=== PATIENT | female | born 1955 | race Caucasian/White ===

== ENCOUNTER 2016-04-02 09:00 | Outpatient (CLI) | payer MEDICAID | END 2016-04-02 09:01 | disposition home or self-care (01) | DX: I10 Essential (primary) hypertension (principal); E11.9 Type 2 diabetes mellitus without complications ==

== ENCOUNTER 2022-05-22 16:15 | Outpatient (CLI) | payer MEDICAID ==
[2022-05-22 20:35] LABS: BASOPHILS # (AUTO) 0.1 10^3/uL (0.0-0.1); BASOPHILS % (AUTO) 0.9 %; EOSINOPHILS # (AUTO) 0.3 10^3/uL (0.0-0.7); EOSINOPHILS % (AUTO) 3.4 %; HGB - HEMOGLOBIN 12.9 g/dL (12.0-16.0); LYMPHOCYTES # (AUTO) 1.6 10^3/uL (1.5-3.5); LYMPHOCYTES % (AUTO) 20.6 %; MEAN CORPUSCULAR HEMOGLOBIN 25.5 pg (27.0-31.0); MEAN PLATELET VOLUME 11.8 fL (7.9-10.8); MONOCYTES # (AUTO) 0.6 10^3/uL (0.0-1.0); MONOCYTES % (AUTO) 7.8 %; NEUTROPHILS # (AUTO) 5.3 10^3/uL (1.5-6.6); NEUTROPHILS % (AUTO) 66.8 %; PLT - PLATELET COUNT 270 10^3/uL (130-450); RED BLOOD COUNT 5.06 10^6/uL (4.20-5.40); RED CELL DISTRIBUTION WIDTH 15.9 % (12.0-15.0)
[2022-05-22 20:45] LABS: ESTIMATED AVERAGE GLUCOSE 229 mg/dL (70-100); HEMOGLOBIN A1c% 9.6 % (4.27-6.07)
[2022-05-22 20:56] LABS: ALBUMIN 3.7 g/dL (3.2-5.5); ALBUMIN/GLOBULIN RATIO 1.2 (1.0-2.2); ALKALINE PHOSPHATASE 125 IU/L (42-121); ALT ALANINE AMINOTRANSFERASE 27 IU/L (10-60); AST ASPARTATE AMINOTRANSFERASE 22 IU/L (10-42); BILIRUBIN,TOTAL 0.2 mg/dL (0.2-1.0); BUN - BLOOD UREA NITROGEN 28 mg/dL (6-20); CALCIUM 9.2 mg/dL (8.5-10.3); CARBON DIOXIDE - CO2 27 mmol/L (21-32); CHLORIDE 104 mmol/L (101-111); CHOL/HDL RATIO 3.5 (<4.4); CHOLESTEROL 205 mg/dL; CREATININE 0.7 mg/dL (0.4-1.0); GFR - MDRD 84 (>89); GLUCOSE 207 mg/dL (70-100); HDL CHOLESTEROL 59 mg/dL; LDL CHOLESTEROL,CALCULATED 116 mg/dL; POTASSIUM 4.3 mmol/L (3.5-5.0); SODIUM 140 mmol/L (135-145); TOTAL PROTEIN 6.9 g/dL (6.7-8.2); TRIGLYCERIDES 149 mg/dL; VLDL CHOLESTEROL 30 mg/dL
[2022-05-22 21:03] LABS: PARTIAL THROMBOPLASTIN TIME 34.2 secs (24.9-33.3)
[2022-05-22 21:10] LABS: INR 1.2 (0.8-1.2); PT - PROTHROMBIN TIME 13.5 secs (9.9-12.6)
== END 2022-05-22 16:30 | disposition home or self-care (01) ==
LOC: LAB.N 16:15
PROVIDERS: ATTEND Nurse Practitioner
DX: E78.5 Hyperlipidemia, unspecified (principal)
CPT/HCPCS: 36415; 80053; 80061; 83036; 83721; 85025; 85610; 85730

== ENCOUNTER 2022-08-11 08:46 | Outpatient (CLI) | payer MEDICAID ==
--- NOTE | 2022-08-11 10:12 | CT Report ---
PROCEDURE: Low Dose Lung Cancer Screen INDICATIONS: TOBACCO DEPENDENCE TECHNIQUE: Noncontrast low-dose axial images were acquired from the pulmonary apices to the posterior costophren ic angles. Multiplanar MIP reformats were then reconstructed. For radiation dose reduction, the follo wing was used: automated exposure control, adjustment of mA and/or kV according to patient size. COMPARISON: None. FINDINGS: Image quality: Excellent. Prior cancer history: No Lungs and pleura: No pleural effusions. No pneumothorax. 4 mm medial pleural based left upper lobe p ulmonary nodule, abutting the mediastinum, image 103/4. 8mm groundglass opacity, right upper lobe, im age 56/4. Mild left basilar atelectasis versus scarring. Mediastinum: Heart size is normal. Trace pericardial effusion. Moderate coronary artery calcification s No mediastinal adenopathy by size criteria. No large vessel abnormality. Chest wall and lower neck: Thyroid is unremarkable. No axillary or supraclavicular adenopathy by size . Bones: No aggressive osseous abnormality. Upper Abdomen: Unremarkable. IMPRESSION: 8 mm groundglass opacity, right upper lobe, 4 mm pleural based left upper lobe pulmonary nodule. Lung RAD: 3 - Probably Benign. Recommendation: Continue screening in 6 Months with LDCT Non-Lung Significant Findings: Coronary Arterial Calcification - Moderate or Severe. Reviewed by: Tan Guerrero MD on 08/11/2022 10:11 AM PDT Approved by: Tan Guerrero MD on 08/11/2022 10:11 AM PDT Station ID: [id number]
== END 2022-08-11 08:47 | disposition home or self-care (01) ==
LOC: DI 08:46
PROVIDERS: ATTEND Physician Assistant
DX: Z12.2 Encounter for screening for malignant neoplasm of respiratory organs (principal); R91.1 Solitary pulmonary nodule; R91.8 Other nonspecific abnormal finding of lung field; Z72.0 Tobacco use

== ENCOUNTER 2022-09-17 08:02 | Outpatient (CLI) | payer MEDICAID ==
[2022-09-17 12:01] LABS: CALCIUM 9.1 mg/dL (8.5-10.3); CREATININE 0.9 mg/dL (0.4-1.0); POTASSIUM 4.2 mmol/L (3.5-5.0)
[2022-09-17 12:23] LABS: ESTIMATED AVERAGE GLUCOSE 263 mg/dL (70-100); HEMOGLOBIN A1c% 10.8 % (4.27-6.07)
[2022-09-17 18:39] LABS: CREATININE,URINE 171.9 mg/dL; MICROALBUM/CREATININE RATIO,UR 258.3 ug/mg (<30.0); MICROALBUMIN,URINE 44.4 mg/dL (0-300.0)
[2022-09-18 05:12] LABS: HCV AB Non Reactive (Non Reactive)
== END 2022-09-17 08:03 | disposition home or self-care (01) ==
LOC: LAB.N 08:02
PROVIDERS: ATTEND Physician Assistant
DX: Z01.84 Encounter for antibody response examination (principal); E11.42 Type 2 diabetes mellitus with diabetic polyneuropathy
CPT/HCPCS: 36415; 80048; 82043; 82570; 83036; 86803

== ENCOUNTER 2022-09-30 15:05 | Outpatient (CLI) | payer MEDICAID | END 2022-09-30 15:06 | disposition home or self-care (01) | LOC: MAC.MOP 15:05 | PROVIDERS: ATTEND Physician Assistant | DX: R94.31 Abnormal electrocardiogram [ECG] [EKG] (principal); Z86.79 Personal history of other diseases of the circulatory system | CPT/HCPCS: 93246 ==

== ENCOUNTER 2022-12-17 10:42 | Outpatient (CLI) | payer MEDICARE ==
[2022-12-17 17:58] LABS: POTASSIUM 4.2 mmol/L (3.5-4.5)
[2022-12-17 18:29] LABS: ESTIMATED AVERAGE GLUCOSE 200 mg/dL (70-100); HEMOGLOBIN A1c% 8.6 % (4.27-6.07)
== END 2022-12-17 10:43 | disposition home or self-care (01) ==
LOC: LAB.N 10:42
PROVIDERS: ATTEND Physician Assistant
DX: E11.42 Type 2 diabetes mellitus with diabetic polyneuropathy (principal)
CPT/HCPCS: 36415; 80048; 83036

== ENCOUNTER 2022-12-23 08:00 | Outpatient (CLI) | payer MEDICARE ==
[2022-12-23 18:32] LABS: INFLUENZA A- RESP PCR PANEL NOT DETECTED; INFLUENZA B - RESP PCR PANEL NOT DETECTED; RSV- RESP PCR PANEL NOT DETECTED; SARS-CoV-2 -RESP PCR PANEL NOT DETECTED
== END 2022-12-23 23:59 | disposition home or self-care (01) ==
LOC: LAB.WCP 08:00
PROVIDERS: ATTEND Physician Assistant
DX: R05.1 Acute cough (principal); Z20.822 Contact with and (suspected) exposure to COVID-19
CPT/HCPCS: 87637

== ENCOUNTER 2022-12-24 17:04 | Outpatient (CLI) | payer MEDICARE ==
[2022-12-24 20:35] LABS: BILIRUBIN,URINE NEGATIVE (NEGATIVE); GLUCOSE, URINE (UA) 100 mg/dL (NEGATIVE); KETONES,URINE (UA) TRACE mg/dL (NEGATIVE); LEUKOCYTE ESTERASE, URINE TRACE (NEGATIVE); NITRITE,URINE POSITIVE (NEGATIVE); OCCULT BLOOD,URINE LARGE (NEGATIVE); PH,URINE 5.5 PH (5.0-7.5); PROTEIN,URINE >=300 mg/dL (NEGATIVE); UROBILINOGEN,URINE 1 (NORMAL) E.U./dL (NORMAL)
[2022-12-24 20:36] LABS: CLARITY,URINE CLOUDY (CLEAR)
[2022-12-24 20:44] LABS: AMORPHOUS SEDIMENT,UR Marked /LPF; BACTERIA,URINE Few /HPF (None Seen); RBC,URINE TNTC /HPF (0-5); SQUAMOUS EPITHELIAL CELL,UR RARE Squamous (<= Few); WBC,URINE 0-3 /HPF (0-5)
== END 2022-12-24 17:05 | disposition home or self-care (01) ==
LOC: LAB.N 17:04
PROVIDERS: ATTEND Physician Assistant
DX: R31.0 Gross hematuria (principal)
CPT/HCPCS: 81001; 87086

== ENCOUNTER 2023-05-10 10:23 | Outpatient (CLI) | payer MEDICARE ==
[2023-05-10 11:59] LABS: BASOPHILS # (AUTO) 0.1 10^3/uL (0.0-0.1); BASOPHILS % (AUTO) 1.1 %; EOSINOPHILS # (AUTO) 0.4 10^3/uL (0.0-0.7); EOSINOPHILS % (AUTO) 4.3 %; HCT - HEMATOCRIT 42.4 % (37.0-47.0); HGB - HEMOGLOBIN 12.5 g/dL (12.0-16.0); LYMPHOCYTES # (AUTO) 1.3 10^3/uL (1.5-3.5); LYMPHOCYTES % (AUTO) 15.9 %; MEAN CORPUSCULAR HEMOGLOBIN 25.4 pg (27.0-31.0); MEAN CORPUSCULAR HGB CONC 29.5 g/dL (32.0-36.0); MEAN PLATELET VOLUME 11.2 fL (7.9-10.8); MONOCYTES # (AUTO) 0.5 10^3/uL (0.0-1.0); MONOCYTES % (AUTO) 6.1 %; NEUTROPHILS # (AUTO) 5.8 10^3/uL (1.5-6.6); NEUTROPHILS % (AUTO) 72.4 %; PLT - PLATELET COUNT 272 10^3/uL (130-450); RED BLOOD COUNT 4.93 10^6/uL (4.20-5.40); RED CELL DISTRIBUTION WIDTH 16.9 % (12.0-15.0); WHITE BLOOD COUNT 8.1 x10^3/uL (4.8-10.8)
[2023-05-10 12:30] LABS: ESTIMATED AVERAGE GLUCOSE 186 mg/dL (70-100); HEMOGLOBIN A1c% 8.1 % (4.27-6.07)
[2023-05-10 15:51] LABS: POTASSIUM 3.9 mmol/L (3.5-4.5)
[2023-05-10 15:52] LABS: ALBUMIN/GLOBULIN RATIO 1.4 (1.0-2.2); BILIRUBIN,TOTAL 0.7 mg/dL (0.2-1.0); CALCIUM 9.4 mg/dL (8.5-10.3); CREATININE 0.9 mg/dL (0.6-1.3); TOTAL PROTEIN 6.9 g/dL (6.4-8.9)
== END 2023-05-10 10:24 | disposition home or self-care (01) ==
LOC: LAB.N 10:23
PROVIDERS: ATTEND Physician Assistant
DX: E11.42 Type 2 diabetes mellitus with diabetic polyneuropathy (principal); N10 Acute pyelonephritis
CPT/HCPCS: 36415; 80053; 83036; 85025

== ENCOUNTER 2023-10-01 09:06 | Outpatient (CLI) | payer MEDICARE | END 2023-10-01 09:07 | disposition home or self-care (01) | LOC: LAB.N 09:06 | PROVIDERS: ATTEND Physician Assistant | DX: Z53.9 Procedure and treatment not carried out, unspecified reason (principal) ==

== ENCOUNTER 2023-10-07 09:59 | Outpatient (CLI) | payer MEDICARE ==
[2023-10-07 12:10] LABS: BASOPHILS # (AUTO) 0.1 10^3/uL (0.0-0.1); BASOPHILS % (AUTO) 1.1 %; EOSINOPHILS # (AUTO) 0.6 10^3/uL (0.0-0.7); EOSINOPHILS % (AUTO) 6.7 %; HCT - HEMATOCRIT 42.5 % (37.0-47.0); LYMPHOCYTES # (AUTO) 1.3 10^3/uL (1.5-3.5); LYMPHOCYTES % (AUTO) 15.1 %; MEAN CORPUSCULAR HEMOGLOBIN 25.1 pg (27.0-31.0); MEAN CORPUSCULAR HGB CONC 30.6 g/dL (32.0-36.0); MEAN PLATELET VOLUME 11.4 fL (7.9-10.8); MONOCYTES # (AUTO) 0.8 10^3/uL (0.0-1.0); MONOCYTES % (AUTO) 8.8 %; NEUTROPHILS # (AUTO) 5.8 10^3/uL (1.5-6.6); NEUTROPHILS % (AUTO) 67.9 %; PLT - PLATELET COUNT 230 10^3/uL (130-450); RED BLOOD COUNT 5.18 10^6/uL (4.20-5.40); RED CELL DISTRIBUTION WIDTH 18.8 % (12.0-15.0); WHITE BLOOD COUNT 8.5 x10^3/uL (4.8-10.8)
[2023-10-07 12:38] LABS: ALBUMIN 4.2 g/dL (3.2-5.5); ALBUMIN/GLOBULIN RATIO 1.8 (1.0-2.2); ALKALINE PHOSPHATASE 120 IU/L (42-121); ALT ALANINE AMINOTRANSFERASE 79 IU/L (10-60); AST ASPARTATE AMINOTRANSFERASE 51 IU/L (10-42); BILIRUBIN,TOTAL 0.5 mg/dL (0.2-1.0); BUN - BLOOD UREA NITROGEN 31 mg/dL (6-20); CALCIUM 9.1 mg/dL (8.5-10.3); CARBON DIOXIDE - CO2 28 mmol/L (21-32); CHLORIDE 104 mmol/L (101-111); CHOL/HDL RATIO 3.3 (<4.4); CHOLESTEROL 146 mg/dL; GFR - MDRD 56 (>89); GLUCOSE 138 mg/dL (74-104); HDL CHOLESTEROL 44 mg/dL; LDL CHOLESTEROL,CALCULATED 74 mg/dL; LDL/HDL RATIO 1.7 (<4.4); POTASSIUM 3.8 mmol/L (3.5-4.5); SODIUM 138 mmol/L (135-145); TOTAL PROTEIN 6.6 g/dL (6.4-8.9); TRIGLYCERIDES 139 mg/dL; VLDL CHOLESTEROL 28 mg/dL
[2023-10-07 13:28] LABS: ESTIMATED AVERAGE GLUCOSE 197 mg/dL (70-100); HEMOGLOBIN A1c% 8.5 % (4.27-6.07)
== END 2023-10-07 10:00 | disposition home or self-care (01) ==
LOC: LAB.N 09:59
PROVIDERS: ATTEND Physician Assistant
DX: E11.42 Type 2 diabetes mellitus with diabetic polyneuropathy (principal)
CPT/HCPCS: 36415; 80053; 80061; 83036; 83721; 85025

== ENCOUNTER 2023-10-19 12:30 | Outpatient (CLI) | payer MEDICARE | END 2023-10-19 12:45 | disposition home or self-care (01) | LOC: LAB.N 12:30 | PROVIDERS: ATTEND Family Medicine | DX: S91.301A Unspecified open wound, right foot, initial encounter (principal) | CPT/HCPCS: 87070; 87205 ==

== ENCOUNTER 2023-11-30 15:06 | Outpatient (CLI) | payer MEDICARE ==
[2023-11-30 15:50] LABS: THYROID STIMULATING HORMONE 0.75 uIU/mL (0.34-5.60)
== END 2023-11-30 15:07 | disposition home or self-care (01) ==
LOC: LAB 15:06
PROVIDERS: ATTEND Physician Assistant
DX: I10 Essential (primary) hypertension (principal)
CPT/HCPCS: 36415; 84439; 84443

== ENCOUNTER 2023-11-30 15:24 | Outpatient (CLI) | payer MEDICARE ==
--- NOTE | 2023-11-30 17:12 | XRAY Report ---
PROCEDURE: Foot 1-2V RT (Weight Bearing) INDICATIONS: R FOOT PAIN TECHNIQUE: 2 views of the foot were acquired. COMPARISON: None. 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 Trace cortical irregularity of the amputati on site at the first digit. Otherwise no gross periostitis. There are severe degenerative changes in the midfoot, specifically tarsometatarsal joints 2 through 4 and mild spurring. Very slight pes planu s deformity. Degenerative spurring at the posterior subtalar joint and small plantar calcaneal spur. Soft tissues: No tibiotalar joint effusion. Achilles tendon appears normal. No suspicious soft tis dimitrios gas. IMPRESSION: Questionable cortical irregularity along the amputation site at the first distal phalanx. No visible soft tissue ulceration or underlying soft tissue gas. Correlate clinically. Severe degenerative changes in the midfoot consistent with diabetic neuropathy. Very mild pes planus deformity. Reviewed by: Maryann Gautam MD on 11/30/2023 5:11 PM PDT Approved by: Maryann Gautam MD on 11/30/2023 5:11 PM PDT Station ID: [id number]
== END 2023-11-30 15:25 | disposition home or self-care (01) ==
LOC: DI 15:24
PROVIDERS: ATTEND Physician Assistant
DX: M19.071 Primary osteoarthritis, right ankle and foot (principal); M21.41 Flat foot [pes planus] (acquired), right foot; I10 Essential (primary) hypertension
CPT/HCPCS: 36415; 84439; 84443